=== PATIENT | male | born 1960 | race Caucasian/White ===

== ENCOUNTER 2022-12-20 09:48 | Day surgery (SDC) | payer OTHER ==
[~2022-12-20] VITALS: Ht 177.8 cm; Wt 80.2 kg
[2022-12-20 09:58] VITALS: BP 131/87; PULSE 51; TEMP 97.3
[2022-12-20] MEDS ORDERED: PRINIVIL20 MG PO (10:02)
[2022-12-20] MEDS ORDERED: SINGULAIR 5M5 MG/TAB PO (10:02)
[2022-12-20] MEDS ORDERED: PRILOSEC 20MG20 MG PO (10:02)
[2022-12-20] MEDS ORDERED: ZYRTEC 10MG10 MG PO (10:03)
[2022-12-20] MEDS ORDERED: VITAMIN D31000 I1 PO (10:03)
[2022-12-20] MEDS ORDERED: VITAMIN C500 MG PO (10:03)
[2022-12-20] MEDS ORDERED: B-121000 MCG PO (10:04)
[2022-12-20] MEDS ORDERED: PROAIR HFA0.09 MG/AC IH (10:04)
[2022-12-20] MEDS ORDERED: NATURAL E400 IU PO (10:05)
[2022-12-20 11:20] VITALS: BP 117/75; PULSE 55; TEMP 97.8
[2022-12-20 11:35] VITALS: BP 108/79; PULSE 54
[2022-12-20 11:50] VITALS: BP 124/67
--- NOTE | 2022-12-20 16:28 | NUR ---
1120: PATIENT TO BAY 6 PER CART FROM ENDO SUITE. REPORT RECEIVED FROM ENDO NURSE. VS OBTAINED. BREATHING EVEN AND UNLABORED. PATIENT DENIES ANY NAUSEA OR PAIN AT THIS TIME. PATIENT REQUESTED WATER AND MUFFIN. PATIENT RESTING IN RECLINER AT THIS TIME. AT SIDE. CALL LIGHT IN REACH. 1135: PATIENT TOLERATING FOOD AND DRINK. NO C/O NAUSEA OR PAIN AT THIS TIME. VS REMAIN STABLE. AT SIDE. CALL LIGHT IN REACH. 1145: DR. LEACH IN TO SEE PATIENT AT THIS TIME. 1150: VS REMAIN STABLE. PATIENT HAS NO COMPLAINTS AT THIS TIME. RESTING IN RECLINER. AT SIDE. CALL LIGHT IN REACH. 1155: DISCHARGE EDUCATION COMPLETED AT THIS TIME. PATIENT STATED UNDERSTANDING OF INSTRUCTIONS. DISCHARGE PAPERWORK GIVEN TO PATIENT. IV DC'D AT THIS TIME. PATIENT DENIES ASSISTANCE WITH DRESSING. 1205: PATIENT OFF UNIT VIA WHEELCHAIR. PATIENT DISCHARGED TO HOME WITH PER PRIVATE VEHICLE.
== END 2022-12-20 12:05 | disposition home or self-care (01) ==
LOC: SDCO 09:48
DX: D12.6 Benign neoplasm of colon, unspecified (principal); Z12.11 Encounter for screening for malignant neoplasm of colon; K57.90 Diverticulosis of intestine, part unspecified, without perforation or abscess without bleeding; G47.33 Obstructive sleep apnea (adult) (pediatric); Z87.891 Personal history of nicotine dependence; Z99.81 Dependence on supplemental oxygen
CPT/HCPCS: J2704; J7120